=== PATIENT | female | born 1945 | race African-American/Black ===

== ENCOUNTER 2018-01-24 16:26 | Outpatient (CLI) | payer MEDICARE, BC | END 2018-01-24 16:27 | disposition home or self-care (01) | LOC: BICRAD 16:26 | PROVIDERS: ATTEND Internal Medicine | DX: M54.9 Dorsalgia, unspecified (principal); M47.894 Other spondylosis, thoracic region; M47.896 Other spondylosis, lumbar region; M43.16 Spondylolisthesis, lumbar region | CPT/HCPCS: 72072; 72100 ==

== ENCOUNTER 2018-02-15 08:53 | Outpatient (CLI) | payer MEDICARE, BC | END 2018-02-15 08:54 | disposition home or self-care (01) | LOC: BICMAMMO 08:53 | PROVIDERS: ATTEND Internal Medicine | DX: Z12.31 Encounter for screening mammogram for malignant neoplasm of breast (principal); Z78.0 Asymptomatic menopausal state | CPT/HCPCS: 77063; 77067 ==

== ENCOUNTER 2018-02-20 08:50 | Outpatient (CLI) | payer MEDICARE, BC | END 2018-02-20 08:51 | disposition home or self-care (01) | LOC: BICMAMMO 08:50 | PROVIDERS: ATTEND Internal Medicine | DX: Z13.820 Encounter for screening for osteoporosis (principal); Z78.0 Asymptomatic menopausal state | CPT/HCPCS: 77080 ==

== ENCOUNTER 2018-03-23 08:29 | Outpatient (CLI) | payer MEDICARE, BC | END 2018-03-23 08:30 | disposition home or self-care (01) | LOC: BICRAD 08:29 | PROVIDERS: ATTEND Physical Medicine & Rehabilitation | DX: M25.552 Pain in left hip (principal); M16.12 Unilateral primary osteoarthritis, left hip ==

== ENCOUNTER 2018-07-18 11:04 | Emergency (ER) | payer MEDICARE, BC ==
--- NOTE | 2018-07-18 11:55 | RAD ---
RIGHT FOOT THREE VIEWS: History: Pain. History of a bone spur. Comparison: None. FINDINGS: There is no acute fracture or malalignment. There are moderate sized plantar and dorsal calcaneal spu rs. There is mild capsular calcific periarthritis of the middle toe distal phalanx lateral margin at the interphalangeal joint. Mild lateral subluxation of the great toe sesamoids. IMPRESSION: 1. Chronic changes. No acute abnormality. 2. Moderate sized dorsal calcaneal spur. 3. Calcific periarthritis of the middle toe lateral margin distal interphalangeal joint. POS: [facility]
== END 2018-07-18 12:47 | disposition home or self-care (01) ==
LOC: ERS 11:04
DX: M77.31 Calcaneal spur, right foot (principal)

== ENCOUNTER 2019-01-31 08:49 | Outpatient (CLI) | payer MEDICARE, BC ==
--- NOTE | 2019-01-31 14:24 | MMO ---
Bilateral MAMMO Bilat Screen [facility]. CLINICAL HISTORY: Patient is 73 years old and is seen for screening. The patient has no family history of breast cancer. The patient has no personal history of cancer. The patient has a history of left Stereotatic Biopsy in 2012 - benign. VIEWS: The views performed were: bilateral craniocaudal; bilateral craniocaudal with tomosynthesis; bilateral mediolateral oblique; and bilateral mediolateral oblique with tomosynthesis. FILMS COMPARED: The present examination has been compared to prior imaging studies performed at [facility] on 02/15/2018, and at [facility] on 04/10/2013 and 09/19/2016. MAMMOGRAM FINDINGS: There are scattered fibroglandular densities. Benign calcifications are noted bilaterally. Left biopsy clip. Nodularity is stable. There are no suspicious masses, suspicious calcifications, or new areas of architectural distortion. IMPRESSION: THERE IS NO MAMMOGRAPHIC EVIDENCE OF MALIGNANCY. A ROUTINE FOLLOW-UP MAMMOGRAM IN 1 YEAR IS RECOMMENDED. THE RESULTS OF THIS EXAM WERE SENT TO THE PATIENT. ACR BI-RADS Category 2 - Benign finding MAMMOGRAPHY NOTE: 1. A negative mammogram report should not delay a biopsy if a dominant of clinically suspicious mass is present. 2. Approximately 10% to 15% of breast cancers are not detected by mammography. 3. Adenosis and dense breasts may obscure an underlying neoplasm.
== END 2019-01-31 08:50 | disposition home or self-care (01) ==
LOC: BICMAMMO 08:49
PROVIDERS: ATTEND Internal Medicine
DX: Z12.31 Encounter for screening mammogram for malignant neoplasm of breast (principal)
CPT/HCPCS: 77063; 77067

== ENCOUNTER 2019-03-16 23:40 | Emergency (ER) | payer MEDICARE, BC ==
[2019-03-17] MEDS ORDERED: HYDROcodone/Acetaminophen 5/325 mg Tablet ONE (00:36)
== END 2019-03-17 01:31 | disposition home or self-care (01) ==
LOC: ERS 23:40
DX: M54.31 Sciatica, right side (principal); I10 Essential (primary) hypertension
CPT/HCPCS: 99283

== ENCOUNTER 2019-11-03 22:11 | Emergency (ER) | payer MEDICARE, BC ==
[2019-11-03 22:40] LABS: #Basophils 0.1 thou/uL (0.0-0.2); #Eosinphils 0.3 thou/uL (0.0-0.7); #Monocytes 0.4 thou/uL (0.11-0.59); #Neutrophils 3.8 thou/uL (1.40-6.50); %Basophils 0.9 % (0.0-1.0); %Eosinophils 3.6 % (0.0-10.0); %Lymphocytes 39.1 % (21.0-51.0); %Monocytes 5.3 % (0.0-10.0); Mean Corpuscular HGB CONC 31.1 g/dL (32.0-36.0); Mean Corpuscular Hemoglobin 29.5 pg (27.0-31.0); Mean Corpuscular Volume 94.8 fL (78.0-98.0); Platelet Count 234 thou/uL (130-400); RBC Distribution Width 13.1 % (11.5-14.5); Red Blood Cell (RBC) Count 4.06 mill/uL (4.20-5.40); White Blood Cell (WBC) Count 7.5 thou/uL (4.8-10.8)
[2019-11-03 22:58] LABS: Acetaminophen Less than 6.0 mcg/mL (10.0-30.0); Alcohol Less than 10 mg/dL (Less than 10); CK (CPK) 242 U/L (29-168); Salicylate Less than 8.0 mg/dL (15.0-30.0)
[2019-11-03 23:02] LABS: ALT (SGPT) 10 U/L (8-55); AST (SGOT) 20 U/L (5-34); Alkaline Phosphatase 108 U/L (40-110); Anion Gap 13 mmol/L (10-20); BUN (Urea Nitrogen) 11 mg/dL (9.8-20.1); Bilirubin, Total 0.6 mg/dL (0.2-1.2); Calc. Creatinine Clearance 0 mL/min (70-130); Calcium 8.7 mg/dL (7.8-10.44); Carbon Dioxide 24 mmol/L (23-31); Chloride 108 mmol/L (98-107); Estimated GFR-MDRD 79; Globulin 3.4 g/dL (2.4-3.5); Glucose 121 mg/dL (83-110); Potassium 3.7 mmol/L (3.5-5.1); Protein, Total 7.4 g/dL (6.0-8.3); Sodium 141 mmol/L (136-145)
[2019-11-03 23:17] LABS: CKMB 2.6 ng/mL (0-6.6)
--- NOTE | 2019-11-03 23:17 | CT ---
CT BRAIN NONCONTRAST: DATE: 11/03/2019 HISTORY: 74-year-old female with dizziness and headache FINDINGS: There is no evidence of acute intra-axial or extra-axial hemorrhage. There is no midline shift or any other mass effect. There is no extra-axial fluid collection. There is no evidence of obstructive hydrocephalus. Calvarium is intact. IMPRESSION: No acute intracranial findings.
--- NOTE | 2019-11-03 23:28 | RAD ---
RADIOGRAPH CHEST 1 VIEW: DATE: 11/03/2019 HISTORY: 74-year-old female with dizziness FINDINGS: There is cardiomegaly. The thoracic aorta is tortuous and ectatic. There is no evidence of airspace d ensity, pulmonary edema, or pneumothorax. The lateral costophrenic angles are not effaced. IMPRESSION: 1) No acute pulmonary findings. 2) mild cardiomegaly without congestive heart failure. 3) ectasia of thoracic aorta.
[2019-11-03 23:44] LABS: Actual Bicarbonate (HCO3a) 19.7 mEq/L (22-28); Analyzer IN Cardio ER; Base Excess (BEa) -4.4 mEq/L (-2.0 to +3.0); CO2 Tension 33.1 mmHg (35.0-45.0); Calcium, Ionized 1.14 mmol/L (1.12-1.30); Carboxyhemoglobin (COHb) 0.3 gm% (0.0-3.0); Hemoglobin (Hb) 12.2 g/dL (12.0-16.0); O2 Tension (PaO2) 81.3 mmHg (> 70.0); Potassium - ABG Lab 3.88 mmol/L (3.70-5.30); pH, Arterial 7.39 (7.35-7.45)
[2019-11-04 00:03] LABS: Bilirubin Negative (Negative); Blood, Urine Negative (Negative); Clarity Clear (Clear); Glucose, Urine (Dipstick) Normal (Negative); Leukocyte Negative Leu/uL (Negative); Nitrite Negative (Negative); Protein, Urine (Dipstick) 20 mg/dL (Neg-Trace); Urobilinogen Normal mg/dL (Less than 2)
[2019-11-04 00:19] LABS: Amphetamine Not Detected (NotDetected); Barbiturates Screen Not Detected (NotDetected); Benzodiazepine Screen Not Detected (NotDetected); Cocaine Metabolite Screen Not Detected (NotDetected); Medtox Control Line Valid? VALID (VALID); Medtox Reader # READER 4; Methadone Not Detected (NotDetected); Methamphetamine Not Detected (NotDetected); Opiate Screen Not Detected (NotDetected); Oxycodone Screen Not Detected (NotDetected); Phencyclidine (PCP) Not Detected (NotDetected); THC/Cannabinoid Screen Not Detected (NotDetected); Tricyclic Screen Not Detected (NotDetected)
[2019-11-04 01:30] LABS: Troponin I 0.013 ng/mL (< 0.028)
[2019-11-04 02:14] LABS: ALV-art Gradient 27.055 (0-20); Puncture Site RRA
== END 2019-11-04 01:40 | disposition home or self-care (01) ==
LOC: ERS 22:11
DX: R42 Dizziness and giddiness (principal); I10 Essential (primary) hypertension; E78.00 Pure hypercholesterolemia, unspecified
CPT/HCPCS: 70450; 71045; 80053; 80306; 80307; 81003; 82550; 82553; 82805; 84484; 85025; 93005; 96360

== ENCOUNTER 2019-12-22 19:04 | Emergency (ER) | payer MEDICARE, BC ==
--- NOTE | 2019-12-22 20:43 | RAD ---
Chest AP view INDICATION: Chest tightness with difficulty breathing COMPARISON: November 04, 2019 FINDINGS: Lungs: Stable chronic lung changes. No airspace consolidation. Cardiac silhouette: Stable moderate cardiomegaly Pulmonary vasculature: Normal Pleural spaces: No pleural effusion or pneumothorax is demonstrated. Upper abdomen: No abnormality seen. Osseous structures: No acute osseous abnormality. Stable postsurgical change of a right rotator cuff repair. Additional findings: None. IMPRESSION: No acute cardiopulmonary abnormality.
== END 2019-12-22 21:53 | disposition home or self-care (01) ==
LOC: ERS 19:04
DX: F22 Delusional disorders (principal); I10 Essential (primary) hypertension; E78.00 Pure hypercholesterolemia, unspecified
CPT/HCPCS: 71045; 93005

== ENCOUNTER 2019-12-23 13:28 | Outpatient (CLI) | payer MEDICARE, BC ==
--- NOTE | 2019-12-23 14:41 | ULT ---
US Renal Bilateral STANDARD History: Renal cysts Comparison: None. Findings: Real-time grayscale and color evaluation of the kidneys and urinary bladder was performed. Multiple anechoic simple renal cysts. No mass or hydronephrosis. Right kidney measures 9.5 x 4.9 x 5 cm and the left kidney measures 9.2 x 4.4 x 4.3 cm. No renal mass , hydronephrosis, or abnormal calcifications. Largest cyst on the right measures up to 2 cm and largest cyst on the left measures up to 1.2 cm. Urinary bladder is decompressed. Impression: Multiple bilateral simple renal cysts.
== END 2019-12-23 13:29 | disposition home or self-care (01) ==
LOC: BICULT 13:28
PROVIDERS: ATTEND Urology
DX: N28.1 Cyst of kidney, acquired (principal)
CPT/HCPCS: 76770

== ENCOUNTER 2020-02-19 10:01 | Outpatient (CLI) | payer MEDICARE, BC ==
--- NOTE | 2020-02-19 11:05 | MMO ---
Bilateral MAMMO Bilat Screen [facility]. CLINICAL HISTORY: Patient is 74 years old and is seen for screening. The patient has no family history of breast cancer. The patient has no personal history of cancer. The patient has a history of left Stereotatic Biopsy in 2012 - benign. VIEWS: The views performed were: bilateral craniocaudal with tomosynthesis; bilateral mediolateral oblique with tomosynthesis; and right mediolateral oblique. FILMS COMPARED: The present examination has been compared to prior imaging studies performed at [facility] on 02/15/2018 and 01/31/2019, and at [facility] on 04/10/2013 and 09/19/2016. This study has been interpreted with the assistance of computer-aided detection. MAMMOGRAM FINDINGS: There are scattered fibroglandular densities. Benign calcifications are noted bilaterally. Left biopsy clip. There are no suspicious masses, suspicious calcifications, or new areas of architectural distortion. IMPRESSION: THERE IS NO MAMMOGRAPHIC EVIDENCE OF MALIGNANCY. A ROUTINE FOLLOW-UP MAMMOGRAM IN 1 YEAR IS RECOMMENDED. THE RESULTS OF THIS EXAM WERE SENT TO THE PATIENT. ACR BI-RADS Category 2 - Benign finding MAMMOGRAPHY NOTE: 1. A negative mammogram report should not delay a biopsy if a dominant of clinically suspicious mass is present. 2. Approximately 10% to 15% of breast cancers are not detected by mammography. 3. Adenosis and dense breasts may obscure an underlying neoplasm. Reported by: ADIEL RAY MD Electonically Signed: [id number]
== END 2020-02-19 10:02 | disposition home or self-care (01) ==
LOC: BICMAMMO 10:01
PROVIDERS: ATTEND Internal Medicine
DX: Z12.31 Encounter for screening mammogram for malignant neoplasm of breast (principal); Z91.89 Other specified personal risk factors, not elsewhere classified
CPT/HCPCS: 77063; 77067

== ENCOUNTER 2021-10-07 18:03 | Emergency (ER) | payer MEDICARE ==
[2021-10-07] MEDS ORDERED: Diazepam 5 MG TAB ONE (21:24)
[2021-10-07 21:35] LABS: #Basophils 0.1 thou/uL (0.0-0.2); #Eosinphils 0.1 thou/uL (0.0-0.7); #Lymphocytes 1.8 thou/uL (1.20-3.40); #Monocytes 0.5 thou/uL (0.11-0.59); #Neutrophils 5.6 thou/uL (1.40-6.50); %Basophils 0.8 % (0.0-1.0); %Lymphocytes 22.8 % (21.0-51.0); %Monocytes 6.2 % (0.0-10.0); %Neutrophils 69.3 % (42.0-75.0); Hemoglobin 12.1 g/dL (12.0-16.0); Mean Corpuscular HGB CONC 32.2 g/dL (32.0-36.0); Mean Corpuscular Hemoglobin 31.3 pg (27.0-31.0); Mean Corpuscular Volume 97.2 fL (78.0-98.0); Mean Platelet Volume 8.6 fL (7.4-10.4); Platelet Count 206 thou/uL (130-400); RBC Distribution Width 12.6 % (11.5-14.5); Red Blood Cell (RBC) Count 3.87 mill/uL (4.20-5.40)
[2021-10-07 21:54] LABS: ALT (SGPT) 7 U/L (8-55); AST (SGOT) 17 U/L (5-34); Albumin 3.8 g/dL (3.4-4.8); Alkaline Phosphatase 105 U/L (40-110); Anion Gap 12 mmol/L (10-20); BUN (Urea Nitrogen) 13 mg/dL (9.8-20.1); Bilirubin, Total 0.5 mg/dL (0.2-1.2); Calc. Creatinine Clearance 0 mL/min (70-130); Calcium 8.6 mg/dL (7.8-10.44); Carbon Dioxide 26 mmol/L (23-31); Chloride 107 mmol/L (98-107); Globulin 2.9 g/dL (2.4-3.5); Glucose 124 mg/dL (83-110); Lipase 36 U/L (8-78); Protein, Total 6.7 g/dL (5.8-8.1); Sodium 141 mmol/L (136-145)
[2021-10-07 22:11] LABS: Bilirubin Negative (Negative); Blood, Urine Negative (Negative); Clarity Clear (Clear); Glucose, Urine (Dipstick) Normal (Negative); Ketone, Urine Negative (Negative); Leukocyte Negative Leu/uL (Negative); Nitrite Negative (Negative); Protein, Urine (Dipstick) Negative (Neg-Trace); Specific Gravity, Urine 1.006 (1.002-1.036); Urobilinogen Normal mg/dL (Less than 2); pH, Urine 5.5 (5.0-9.0)
== END 2021-10-07 23:20 | disposition home or self-care (01) ==
LOC: ERS 18:03
DX: T59.891A Toxic effect of other specified gases, fumes and vapors, accidental (unintentional), initial encounter (principal); I10 Essential (primary) hypertension; E78.00 Pure hypercholesterolemia, unspecified
CPT/HCPCS: 36415; 71045; 80053; 81003; 83690; 84484; 85025

== ENCOUNTER 2023-06-30 10:07 | Outpatient (CLI) | payer MEDICARE | END 2023-06-30 10:08 | disposition home or self-care (01) | LOC: BICMAMMO 10:07 | PROVIDERS: ATTEND Internal Medicine | DX: Z12.31 Encounter for screening mammogram for malignant neoplasm of breast (principal); Z78.0 Asymptomatic menopausal state | CPT/HCPCS: 77063; 77067; 77080 ==

== ENCOUNTER 2023-12-01 09:14 | Outpatient (CLI) | payer MEDICARE | END 2023-12-01 09:15 | disposition home or self-care (01) | LOC: BICULT 09:14 | PROVIDERS: ATTEND Internal Medicine | DX: N28.1 Cyst of kidney, acquired (principal) | CPT/HCPCS: 76770 ==

== ENCOUNTER 2024-11-28 14:46 | Outpatient (CLI) | payer MEDICARE | END 2024-11-28 14:47 | disposition home or self-care (01) | LOC: BICMAMMO 14:46 | PROVIDERS: ATTEND Internal Medicine | DX: Z12.31 Encounter for screening mammogram for malignant neoplasm of breast (principal); M54.50 Low back pain, unspecified; M47.816 Spondylosis without myelopathy or radiculopathy, lumbar region; M43.16 Spondylolisthesis, lumbar region; Z91.89 Other specified personal risk factors, not elsewhere classified | CPT/HCPCS: 72100; 72170; 77063; 77067 ==

== ENCOUNTER 2025-05-26 00:46 | Emergency (ER) | payer MEDICARE ==
[2025-05-26 04:39] LABS: #Basophils 0.06 10x3/uL (0.0-0.2); #Eosinophils 0.11 10x3/uL (0.0-0.7); #Monocytes 0.46 10x3/uL (0.11-0.59); #Neutrophils 6.29 10x3/uL (1.40-6.50); %Basophils 0.7 % (0.0-1.0); %Eosinophils 1.2 % (0.0-10.0); %Lymphocytes 24.4 % (21.0-51.0); %Monocytes 5.0 % (0.0-10.0); %Neutrophils 68.5 % (42.0-75.0); Hematocrit 42.1 % (36.0-47.0); Hemoglobin 13.4 g/dL (12.0-16.0); Mean Corpuscular Hemoglobin 30.0 pg (27.0-31.0); Mean Corpuscular Volume 94.2 fL (78.0-98.0); Platelet Count 221 10x3/uL (130-400); Red Blood Cell (RBC) Count 4.47 mill/uL (4.20-5.40); White Blood Cell (WBC) Count 9.18 10x3/uL (4.8-10.8)
[2025-05-26 04:58] LABS: ALT (SGPT) 24 U/L (Less than 34); AST (SGOT) 56 U/L (11-34); Albumin 4.4 g/dL (3.1-4.5); Alkaline Phosphatase 162 U/L (40-110); Anion Gap 15 mmol/L (10-20); BUN (Urea Nitrogen) 25 mg/dL (9.8-20.1); Bilirubin, Total 1.0 mg/dL (0.3-1.2); Calc. Creatinine Clearance 0 mL/min (70-130); Calcium 8.9 mg/dL (7.8-10.44); Carbon Dioxide 23 mmol/L (23-31); Chloride 107 mmol/L (98-107); Globulin 4.1 g/dL (2.4-3.5); Glucose 148 mg/dL (83-110); Potassium 3.7 mmol/L (3.5-5.1); Sodium 141 mmol/L (136-145)
[2025-05-26 05:02] LABS: Troponin I Less than 0.010 ng/mL (< 0.028)
[2025-05-26 05:28] LABS: Bacteria/HPF None Seen HPF (None Seen); CAUTI Indications for Culture Alt mental st,lethar; Glucose, Urine (Dipstick) Normal (Negative); Leukocyte 75 Leu/uL (Negative); Protein, Urine (Dipstick) 30 mg/dL (Neg-Trace); RBC/HPF 0-3 HPF (0-3); Specific Gravity, Urine 1.027 (1.002-1.036)
[2025-05-26 05:33] LABS: Urine Culture Reflex Yes Yes
== END 2025-05-26 05:45 | disposition home or self-care (01) ==
LOC: ERS 00:46
DX: S06.9X9A Unspecified intracranial injury with loss of consciousness of unspecified duration, initial encounter (principal); N39.0 Urinary tract infection, site not specified; I10 Essential (primary) hypertension; E78.5 Hyperlipidemia, unspecified; W01.10XA Fall on same level from slipping, tripping and stumbling with subsequent striking against unspecified object, initial encounter
CPT/HCPCS: 70450; 71045; 80053; 81001; 84484; 85025; 87086; 93005